=== PATIENT | female | born 1950 | race African-American/Black ===

== ENCOUNTER 2017-07-17 11:09 | Emergency (ER) | payer MEDICARE ==
[~2017-07-17] VITALS: Ht 167.6 cm; Wt 77.1 kg
[2017-07-17] MEDS ORDERED: VENTOLIN HFA18 GM INH (11:23)
[2017-07-17] MEDS ORDERED: PREDNISONE20 MG ORAL (11:23)
[2017-07-17] MEDS ORDERED: Albuterol ud Inhalation HHN ONE (11:30)
[2017-07-17 12:07] VITALS: BP 137/87
[2017-07-17 12:09] VITALS: BP 137/87
--- NOTE | 2017-07-17 12:35 | Emergency Room Report ---
History of Present Illness General Chief Complaint: Asthma Source: Patient Present Illness HPI 67-year-old female with known asthma, nonsmoker presents with chest tightness and shortness of breath since last night. Ran out of home Ventolin, was unable to get refills due to recent change in her insurance. Also takes daily fluticasone. No other asthma medications. Denies history of admission for asthma exacerbation, requirement of BiPAP or intubation for serious asthma exacerbation. States she has had recent URI infection and with rhinorrhea, sinus congestion and sore throat, which all have resolved. Denies chest pain, fever or chills. Allergies: Coded Allergies: No Known Allergies (Unverified , 07/17/17) Patient History Past Medical History: asthma Past Surgical History: none Pertinent Family History: none Social History: Denies: smoking, alcohol use, drug use Now: No Immunizations: UTD Reviewed Nursing Documentation: PMH: Agreed, PSxH: Agreed Nursing Documentation-PMH Hx Asthma: Yes Review of Systems All Other Systems: negative except mentioned in HPI Physical Exam Vital Signs Date Time Temp Pulse Resp B/P (MAP) Pulse Ox O2 Delivery O2 Flow Rate FiO2 07/17/17 11:15 97.9 88 18 149/89 95 Room Air 07/17/17 11:33 21 Sp02 EP Interpretation: reviewed, normal General Appearance: normal inspection, well appearing, no apparent distress, alert, GCS 15, non-toxic Head: normocephalic, atraumatic Eyes: bilateral eye PERRL, bilateral eye EOMI ENT: normal ENT inspection, hearing grossly normal, normal pharynx, no angioedema, normal voice, TMs + canals normal, uvula midline, moist mucus membranes Neck: normal inspection, full range of motion, supple, thyroid normal, no meningismus, no bony tend Respiratory: normal inspection, lungs clear, normal breath sounds, no rhonchi, no respiratory distress, no retraction, no accessory muscle use, decreased breath sounds, speaking full sentences, wheezing Cardiovascular #1: regular rate, rhythm, no edema, no JVD, normal capillary refill Gastrointestinal: normal inspection, normal bowel sounds, non tender, soft, no mass, no peritonitis, non-distended, no guarding, no hernia, no pulsatile mass Genitourinary: no CVA tenderness Musculoskeletal: normal inspection, back normal, normal range of motion, no calf tenderness, pelvis stable, Rose's Sign negative Neurologic: normal inspection, alert, oriented x3, responsive, latin american studies director III-XII nml as tested, motor strength/tone normal, cerebellar normal, normal gait, speech normal Psychiatric: normal inspection, judgement/insight normal, mood/affect normal, no suicidal/homicidal ideation, no delusions Skin: normal inspection, normal color, no rash Lymphatic: normal inspection, no adenopathy Medical Decision Making Diagnostic Impression: Primary Impression: Asthma Qualified Codes: J45.21 - Mild intermittent asthma with (acute) exacerbation ER Course patient has mild intermittent asthma likely with acute exacerbation. Vital signs are stable, not tachycardic, not tachypneic, and not hypoxic. Patient has Scattered wheezes with reduced air movement on initial exam. Lungs clear to auscultation after 2 doses of Inderal and prednisone. Patient likely with mild asthma exacerbation 22 recent URI viral syndrome. Will prescribe 5 days of prednisone, and refills Ventolin. Advise close primary care followup as needed. Patient understands to return to ER for worsening symptoms including chest tightness, shortness of breath, and no response to home Ventolin or prednisone. ER course: Patient has remained stable during ED stay. Disposition: Patient is to be discharged to home. Prescriptions given are ventolin, prednisone Patient is instructed to follow up with their primary care doctor within 5 days. Strict return precautions discussed with patient such as fever, chills, worsening/severe pain, nausea, vomiting, which may indicate severe illness. Patient verbalizes understanding and agrees with plan. Please note that this Emergency Department Report was dictated using [employer] musical [employer] technology software, occasionally this can lead to erroneous entry secondary to interpretation by the dictation equipment Last Vital Signs Date Time Temp Pulse Resp B/P (MAP) Pulse Ox O2 Delivery O2 Flow Rate FiO2 07/17/17 12:09 97.9 80 16 137/87 98 Room Air 07/17/17 11:45 21 Status: improved Disposition: HOME, SELF-CARE Condition: Improved Scripts Prednisone* (PREDNISONE*) 20 Mg Tablet 40 MG ORAL DAILY for 5 Days, #20 TAB Prov: ALEXANDRO AVELAR M.D. 07/17/17 Albuterol Sulfate (VENTOLIN HFA) 18 Gm Hfa.aer.ad 1 PUFF INH EVERY 6 HOURS for SOB, cough, #18 GM 1 Refill Prov: ALEXANDRO AVELAR M.D. 07/17/17 Referrals: NOT CHOSEN IPA/,REFERRING (PCP) Patient Instructions: Asthma, Adult Additional Instructions: - take prednisone twice daily for 5 days - use ventolin as needed for cough, SOB ALEXANDRO AVELAR M.D. Jul 17, 2017 12:35
== END 2017-07-17 12:10 | disposition home or self-care (01) ==
LOC: EMR 11:50
DX: J45.21 Mild intermittent asthma with (acute) exacerbation (principal)
CPT/HCPCS: 94640; 94664; 99284; J7512

== ENCOUNTER 2019-09-20 18:31 | Emergency (ER) | payer MEDICARE ==
[~2019-09-20] VITALS: Ht 167.6 cm; Wt 78.5 kg
[~2019-09-20 18:31] MED LIST: PREDNISONE20 MG ORAL; VENTOLIN HFA18 GM INH
[2019-09-20 18:46] VITALS: BP 163/102
--- NOTE | 2019-09-20 18:48 | NUR ---
ED Nurse Note: Pt ambulated to ED due to Q tip stuck on her left earv while she was trying to clean her ear 45 mins ago. Denies pain but states, "It feels funny." ROSINA, on RA.
[2019-09-20 19:04] VITALS: BP 163/102
--- NOTE | 2019-09-20 19:04 | NUR ---
ER DISCHARGE NOTE: Patient is cleared to be discharged per ERMD, pt is aox4, on room air, with stable vital signs. pt was given dc and prescription instructions, pt was able to verbalize understanding, pt id bandremove. pt is able to ambulate with steady gait. pt took all belongings.
--- NOTE | 2019-09-20 19:17 | Emergency Room Report ---
History of Present Illness General Chief Complaint: Earache Source: Patient Present Illness HPI 69-year-old female presents ED for Q-tip in her left ear. States that she stuck a Q-tip in her ear today and states that the cotton came off and is now stuck in her left ear. Denies pain. Denies any difficulty hearing. States she try to remove the cotton but was unsuccessful. Denies any fevers or chills. Denies cough. No other aggravating relieving factors. Denies any other associated symptoms Allergies: Coded Allergies: No Known Allergies (Unverified , 07/17/17) COVID-19 Screening Contact w/high risk pt: No Recent Travel to affected area: No Experienced COVID-19 symptoms?: No Patient History Past Medical History: asthma Past Surgical History: none Pertinent Family History: none Social History: Denies: smoking, alcohol use, drug use Now: No Immunizations: UTD Reviewed Nursing Documentation: PMH: Agreed; PSxH: Agreed Nursing Documentation-PMH Past Medical History: No History, Except For Hx Asthma: Yes Review of Systems All Other Systems: negative except mentioned in HPI Physical Exam Vital Signs Date Time Temp Pulse Resp B/P (MAP) Pulse Ox O2 Delivery O2 Flow Rate FiO2 09/20/19 18:41 98.1 95 20 163/102 (122) 95 Room Air Sp02 EP Interpretation: reviewed, normal General Appearance: no apparent distress, alert, GCS 15, non-toxic Head: normocephalic, atraumatic Eyes: bilateral eye normal inspection, bilateral eye PERRL ENT: hearing grossly normal, normal pharynx, no angioedema, normal voice Neck: full range of motion, supple/symm/no masses Respiratory: chest non-tender, lungs clear, normal breath sounds, speaking full sentences Cardiovascular #1: regular rate, rhythm, no edema Cardiovascular #2: 2+ carotid (R), 2+ carotid (L), 2+ radial (R), 2+ radial (L) , 2+ dorsalis pedis (R), 2+ dorsalis pedis (L) Gastrointestinal: normal bowel sounds, non tender, soft, non-distended, no guarding, no rebound Rectal: deferred Genitourinary: normal inspection, no CVA tenderness Musculoskeletal: back normal, normal range of motion, gait/station normal, non- tender Neurologic: alert, motor strength/tone normal, oriented x3, sensory intact, responsive, speech normal Psychiatric: judgement/insight normal, memory normal, mood/affect normal, no suicidal/homicidal ideation Reflexes: 3+ bicep (R), 3+ bicep (L), 3+ tricep (R), 3+ tricep (L), 3+ knee (R) , 3+ knee (L) Lymphatic: no adenopathy Medical Decision Making Diagnostic Impression: Primary Impression: Foreign body sensation in ear canal Qualified Codes: H61.892 - Other specified disorders of left external ear ER Course Hospital Course 69 yo F presents with possible cotton stuck in L ear Differential diagnoses include: TM perforation, otitis externa, otitis media, foreign body Clinical course Patient placed on stretcher. After initial history, physical exam reveals a female in no acute distress. The scope I did not observe any evidence of foreign body in the left ear canal. Visualized left TM without difficulty. Good light reflex noted. I looked in other ear for comparison and appeared similar Patient has no change in hearing. No pain. I discussed findings with patient. Reassurance given. Will discharge home. Safe for discharge close outpatient follow-up Diagnosis - foreign body sensation in ear canal Stable and discharged to home. Followup with PMD. Return to ED if symptoms recur or worsen Last Vital Signs Date Time Temp Pulse Resp B/P (MAP) Pulse Ox O2 Delivery O2 Flow Rate FiO2 09/20/19 19:04 98.1 71 20 163/102 95 Room Air Status: improved Disposition: HOME, SELF-CARE Condition: Stable Patient Instructions: Ear Foreign Body, [id number] Shaan Reece MD Sep 20, 2019 19:17
== END 2019-09-20 19:04 | disposition home or self-care (01) ==
LOC: EMR 18:53
DX: H61.892 Other specified disorders of left external ear (principal)
CPT/HCPCS: 99282